=== PATIENT | male | born 1990 | race African-American/Black ===

== ENCOUNTER → 2017-01-23 | Outpatient (CLI) | payer OTHER ==
--- NOTE | 2017-01-23 11:00 | REP ---
LEFT ANKLE COMPLETE: 01/23/2017. Comparison: 05/16/2016. Clinical history: Left ankle swelling and pain from injury 9 months ago. Evaluate for occult or new injury. On the AP view inferior to the tip of the medial malleolus and partially obscured by the medial vertical aspect of the talus is an ossific density which is seen with smooth margins and better viewed on the mortise view and true lateral view. This is not acute and may be seen obscured on the previous study. However, it has migrated more posteriorly on the lateral projection compared to the previous exam. I do not see widening of the mortise joint. There is a small ossific density quite close to the medial malleolus peripherally separate from the other ossific density described. There is a small lucency along the lateral margin of the talar dome likely a small osteochondral defect. No acute fracture of the distal tibia-fibula. Subtalar joints intact. Talus and calcaneus without acute finding. No heel spurs. Impression: 1. There is less soft tissue swelling about the ankle but with an 8 x 4 mm ossific density with smooth margins posterior to the ankle joint on the lateral view and seen inferior to the medial malleolus on the mortise projection. There is another smaller ossific density peripheral to the medial malleolus and at its inferior margin as well. These are chronic post-traumatic findings. 2. Subtle lucency on one-view over the lateral aspect of the talar dome that may reflect a small osteochondral lesion. 3. Subtalar joints intact. No heel spurs. No acute fracture. Signed by Eligio Oliver MD 01/23/2017 02:46 P
== END ==
LOC: M RAD 09:20
PROVIDERS: ATTEND Surgery
DX: M25.572 Pain in left ankle and joints of left foot (principal)

== ENCOUNTER → 2017-02-23 | Outpatient (CLI) | payer OTHER ==
--- NOTE | 2017-02-23 14:04 | REP ---
MRI LEFT ANKLE: TECHNIQUE: Sagittal proton density, STIR, axial proton density fat sat, T1, coronal proton density, STIR. The Achilles, anterior tibial, posterior tibial, flexor hallucis longus, flexor digitorum longus, and peroneal tendons are all intact. The anterior talofibular, posterior talofibular, calcaneofibular, and deltoid ligaments are intact. Plantar fascia demonstrates no abnormal signal. There is no evidence of plantar fasciitis. No ganglion cyst is seen. There is ill-defined, nonspecific marrow edema in the medial malleolus. In the lateral talar dome, there is an osteochondral lesion with focal marrow edema in a subchondral location with a thin cortical rim still present indicating a stage II-III osteochondral defect. This is 1 cm in diameter. IMPRESSION: Nonspecific ill-defined marrow edema medial malleolus. No tendon or ligament tear. Focal osteochondral lesion 1 cm in diameter in the lateral talar dome posteriorly having the appearance of stage II-III osteochondral lesion. Signed by Prince Alegria MD 02/23/2017 08:20 P
== END ==
LOC: M RAD 06:29
PROVIDERS: ATTEND Surgery
DX: M25.572 Pain in left ankle and joints of left foot (principal)

== ENCOUNTER 2017-06-16 20:19 | Emergency (ER) | payer OTHER ==
[~2017-06-16] VITALS: Ht 175.3 cm; Wt 88.5 kg
[2017-06-16] MEDS ORDERED: IBUP-1022 PO (20:29)
[2017-06-16] MEDS ORDERED: LIDOCAINE 2% MDV 20 ML VIAL SC ONE (21:15)
[2017-06-16 21:46] VITALS: BP 123/58
== END 2017-06-16 21:47 | disposition home or self-care (01) ==
LOC: M ED 20:19
DX: S01.412A Laceration without foreign body of left cheek and temporomandibular area, initial encounter (principal); W50.0XXA Accidental hit or strike by another person, initial encounter; Y92.89 Other specified places as the place of occurrence of the external cause; Y93.61 Activity, american tackle football; Y99.8 Other external cause status; Z87.891 Personal history of nicotine dependence